=== PATIENT | female | born 1970 | race Caucasian/White ===

== ENCOUNTER → 2020-03-14 | Outpatient (CLI) | payer OTHER ==
[~2020-03-14] MED LIST: GADOTERATE 10 MMOL/20 ML VIAL ONE
== END | disposition home or self-care (01) ==
LOC: RAD 16:02
PROVIDERS: ATTEND Psychiatry & Neurology Neurology
DX: J32.4 Chronic pansinusitis (principal); G45.9 Transient cerebral ischemic attack, unspecified; H53.461 Homonymous bilateral field defects, right side
CPT/HCPCS: 70544; 70549; 70553; A9575

== ENCOUNTER → 2020-03-15 | Outpatient (CLI) | payer OTHER | END | disposition home or self-care (01) | LOC: CVU 13:05 | PROVIDERS: ATTEND Psychiatry & Neurology Neurology | DX: I08.1 Rheumatic disorders of both mitral and tricuspid valves (principal); G45.9 Transient cerebral ischemic attack, unspecified; H53.461 Homonymous bilateral field defects, right side | CPT/HCPCS: 93306 ==

== ENCOUNTER → 2020-05-03 | Outpatient (CLI) | payer OTHER | END | disposition home or self-care (01) | LOC: CVU 06:45 | PROVIDERS: ATTEND Psychiatry & Neurology Neurology | DX: I65.22 Occlusion and stenosis of left carotid artery (principal) | CPT/HCPCS: 93880 ==